=== PATIENT | female | born 1940 | race Caucasian/White ===

== ENCOUNTER 2017-08-15 14:33 | Outpatient (CLI) | payer MEDICARE ==
--- NOTE | 2017-08-15 16:51 | ULT ---
DOPPLER VENOUS ULTRASOUND OF BOTH LOWER EXTREMITIES: INDICATION: Bilateral lower extremity edema. TECHNIQUE: Jackson scale, color Doppler, and vascular duplex with spectral analysis was performed of the deep venou s structures of both lower extremities. The common femoral vein, superficial femoral vein, popliteal vein, posterior tibial vein, proximal greater saphenous, and proximal profunda veins were assessed bi laterally. FINDINGS: There is normal compression, flow, and augmentation seen within the deep venous structures of both lo wer extremities. IMPRESSION: No evidence of deep vein thrombosis within both lower extremities. POS: [facility]
== END 2017-08-15 14:34 | disposition home or self-care (01) ==
LOC: ULT 14:33
PROVIDERS: ATTEND Family Medicine
DX: R60.1 Generalized edema (principal)
CPT/HCPCS: 93970

== ENCOUNTER 2017-08-20 20:00 | Observation (INO) | payer MEDICARE ==
[2017-08-20] MEDS ORDERED: Diazepam 10 MG/2 ML SYRINGE ONE (20:19)
[2017-08-20] MEDS ORDERED: Ondansetron HCl/PF 4 MG/2 ML Vial ONE ×2 (20:19→23:50)
[2017-08-20] MEDS ORDERED: Meclizine HCl 25 MG TAB ONE (21:03)
[2017-08-20 21:08] LABS: #Basophils 0.1 thou/uL (0.0-0.2); #Eosinphils 0.2 thou/uL (0.0-0.7); #Monocytes 0.6 thou/uL (0.11-0.59); #Neutrophils 4.4 thou/uL (1.40-6.50); %Basophils 1.6 % (0.0-1.0); %Eosinophils 2.5 % (0.0-10.0); %Lymphocytes 15.9 % (21.0-51.0); %Monocytes 9.4 % (0.0-10.0); %Neutrophils 70.7 % (42.0-75.0); Hemoglobin 13.9 g/dL (12.0-16.0); Mean Corpuscular HGB CONC 33.1 g/dL (32.0-36.0); Mean Corpuscular Hemoglobin 30.5 pg (27.0-31.0); Mean Corpuscular Volume 91.9 fl (81.0-99.0); Mean Platelet Volume 5.9 fL (7.4-10.4); Platelet Count 213 thou/uL (130-400); RBC Distribution Width 10.8 % (11.5-14.5); Red Blood Cell (RBC) Count 4.56 mill/uL (4.20-5.40); White Blood Cell (WBC) Count 6.3 thou/uL (4.8-10.8)
[2017-08-20 21:21] LABS: ALT (SGPT) 31 U/L (8-55); AST (SGOT) 32 U/L (5-34); Albumin 4.4 g/dL (3.4-4.8); Alkaline Phosphatase 49 U/L (40-150); Anion Gap 20 mmol/L (10-20); BUN (Urea Nitrogen) 20 mg/dL (9.8-20.1); Bilirubin, Total 0.4 mg/dL (0.2-1.2); Calc. Creatinine Clearance 0 mL/min (70-130); Calcium 10.1 mg/dL (7.8-10.44); Carbon Dioxide 23 mmol/L (23-31); Chloride 99 mmol/L (98-107); Estimated GFR-MDRD 46; Globulin 2.5 g/dL (2.4-3.5); Glucose 139 mg/dL (83-110); Protein, Total 6.9 g/dL (6.0-8.3); Sodium 139 mmol/L (136-145)
[2017-08-20 21:23] LABS: CKMB 5.7 ng/mL (0-6.6); Troponin I 0.027 ng/mL (< 0.028)
--- NOTE | 2017-08-20 21:28 | CT ---
BRAIN CT WITHOUT IV CONTRAST: History: 76-year-old female with history of headache and dizziness. Comparison: 01-31-17 FINDINGS: No focal mass or midline shift. No intra or extraaxial hemorrhage. Sinuses and mastoids are clear. IMPRESSION: No acute intracranial process. No mass or bleed. Stable from prior study. POS: [facility]
[2017-08-20 22:00] LABS: Bilirubin Negative (Negative); Blood, Urine Negative (Negative); Clarity Clear (Clear); Glucose, Urine (Dipstick) Negative (Negative); Leukocyte Negative (Negative); Nitrite Negative (Negative); Protein, Urine (Dipstick) Negative (Neg-Trace); Urobilinogen 0.2 mg/dL (0.2-1.0)
[2017-08-20] MEDS ORDERED: Potassium Chloride 20 MEQ TAB ONE (22:13)
--- NOTE | 2017-08-20 23:27 | MRI ---
BRAIN MRI WITHOUT IV CONTRAST: History: 76-year-old female with nausea and vomiting and dizziness throughout the day. FINDINGS: No focal mass or midline shift. No intra or extraaxial hemorrhage. No evidence for acute infarct. Alverto y mild sinus mucosal disease. Normal expected flow voids are noted. There are a few small punctate ar eas of FLAIR hyperintensity in the white matter and subcortical regions, evidence for minimal chronic white matter ischemic change. IMPRESSION: Minimal chronic white matter ischemic change. No evidence for acute infarct or other significant acu te process. POS: [facility]
[2017-08-21] MEDS ORDERED: Hydrochlorothiazide 25 MG TAB PO PRN (00:51)
[2017-08-21 01:21] LABS: Troponin I Less than 0.010 ng/mL (< 0.028)
[2017-08-21 01:30] VITALS: BMI 26.6
[2017-08-21 05:23] LABS: Troponin I 0.013 ng/mL (< 0.028)
[2017-08-21] MEDS ORDERED: Levothyroxine Sodium 50 MCG TAB PO SCH (06:00)
[2017-08-21] MEDS ORDERED: Ferrous Sulfate 325 MG TAB PO SCH (08:00)
[2017-08-21] MEDS ORDERED: Meclizine HCl 25 MG TAB PO PRN (08:16)
[2017-08-21] MEDS ORDERED: Famotidine 20 MG TAB PO SCH (09:00)
[2017-08-21] MEDS ORDERED: Clopidogrel Bisulfate 75 MG TAB PO SCH (09:00)
[2017-08-21] MEDS ORDERED: Aspirin 81 mg Enteric Coated Tablet PO SCH (09:00)
[2017-08-21] MEDS ORDERED: Ondansetron HCl/PF 4 MG/2 ML Vial IVP PRN (10:38)
[2017-08-21] MEDS ORDERED: Ondansetron ODT 4 MG TAB PO PRN (10:38)
[2017-08-21] MEDS ORDERED: Bisacodyl 5 MG TAB PO PRN (10:38)
[2017-08-21] MEDS ORDERED: Acetaminophen 325 MG TAB PO PRN (10:38)
[2017-08-21] MEDS ORDERED: Potassium Chloride 20 MEQ TAB PO SCH (10:45)
--- NOTE | 2017-08-21 12:29 | HP ---
PRIMARY CARE PHYSICIAN: Dr. Vanessa Faustin. CHIEF COMPLAINT: Dizziness, vertigo, and weakness. HISTORY OF PRESENT ILLNESS: This is a 76-year-old white female who had a remote history of benign po sitional vertigo years ago. She, in the last year, has had exacerbation of her coronary artery disea se with stent placed in September and then a lower GI bleed back in April of this year at which po int her Plavix was discontinued. She reports that ever since her last hospitalization for the GI ble ed, she has had some frontal headache or pressure. The patient has had a diagnosis of a meningioma, but reports that she was told it was not dangerous then the only time that they would ever consider d oigregorio a surgery would be as if she started to have blindness from pressure on optic nerve. Patient [facility] about a week ago started having very short episodes of vertigo, this would last for a couple o f seconds and resolve and then 2 days ago, she had a more significant episode that lasted little bit longer, but that she was able to shake off and then yesterday at [place], she had a more prolonged episode in the morning and then significant one in the afternoon, when she stood still for a while, they eventually resolved and then in the evening yesterday, patient had sudden onset of severe vertig o unrelated to position. She has her eyes open. She constantly sees the room rotating in a clockwis e manner and feeling generalized weakness when she sits up or stands up. The patient was evaluated i n the emergency room, she was found to have rotary nystagmus that was continuous. She had a CT that was negative and an MRI of the brain that was negative as well, but she did not respond to any medica tions in the emergency room and was put in observation for neurologic consultation. The patient did report multiple episodes of vomiting prior to coming to the emergency room, these resolved with medic ations from the emergency room. She denies any focal weakness, numbness or tingling and denies havin g had her neck extended or unusual position for a prolonged period of time prior to symptoms on setti ng. These symptoms did not seem to be worse when she rotates her head or looks back over shoulder. PAST MEDICAL HISTORY: 1. Coronary artery disease with multiple stents and angina. 2. Diverticulosis with previous diverticulitis. 3. Hyperlipidemia. 4. Chronic back and neck pain. 5. Peripheral neuropathy in all extremities. 6. Asthma. 7. Hypertension. 8. Previous skin cancer, resected. PAST SURGICAL HISTORY: 1. Carpal tunnel surgery. 2. Hysterectomy. 3. Thyroidectomy. 4. Hernia repair. 5. Cervical spine surgery. 6. Multiple cardiac stents. 7. Sigmoid resection. 8. Rectovaginal fistula repair. 9. Cholecystectomy. 10. Bunionectomy. 11. Rectocele repair. SOCIAL HISTORY: The patient denies tobacco, alcohol, or illicit drug use. She lives with her ward pierce. ALLERGIES: 1. AMITRIPTYLINE. 2. CODEINE. 3. DEXAMETHASONE. 4. NITROFURANTOIN. 5. PENICILLIN. 6. SULFA. 7. ULTRAM. 8. CEFUROXIME. 9. DICYCLOMINE. 10. METOCLOPRAMIDE. 11. MORPHINE. 12. SHELLFISH. 13. SUDAFED. CURRENT MEDICATIONS: 1. Aspirin 81 mg daily. 2. Lisinopril/hydrochlorothiazide 10/12.5 mg daily. 3. Levothyroxine 50 mcg daily. 4. Citracal 1 tablet every other day. 5. Magnesium 500 mg once a day. 6. Vitamin B complex 1 tablet daily. 7. Vitamin D3 Complete 1 tablet daily. PSYCHIATRIC HISTORY: No previous psychiatric history. FAMILY HISTORY: Mother and father both lived into their late 90s. No history of early stroke or hea rt disease. REVIEW OF SYSTEMS: Constitutional: No fevers, no chills. She does have generalized weakness with s tanding. Eyes: No double vision or blurred vision. She does have the vertigo was spinning of the v isual field around whatever she is focusing on. ENT: No unusual congestion or drainage. She does h ave some chronic sinus issues that causes some postnasal drip at night. No sore throat. Cardiac: N o chest pain, no palpitations, no racing heart. Pulmonary: She coughs up a little bit of mucus each morning from her postnasal drip overnight, otherwise no coughing, wheezing or shortness of breath. Gastrointestinal: Nausea and vomiting per HPI, that is now resolved. No abdominal pain, no diarrhea or constipation. Genitourinary: No dysuria or hematuria. Musculoskeletal: No significant muscle aches or joint pain s currently. Skin: No rashes or lesions. Neurologic: The patient gets numbness and tingling in he r toes and fingers bilaterally that goes up her extremities. This is chronic. No new changes to thi s. See HPI for vertigo symptoms. No visual field defects, that she has noticed no focal weakness. PHYSICAL EXAMINATION: VITAL SIGNS: Temperature 98.0, pulse 77, respirations 16, blood pressure 112/57 and O2 sat 94% on ro om air. GENERAL: This is a well-developed elderly white female who appears in some distress whenever she crescencio ps her eyes open, so she has to keep them closed. HEENT: Pupils equal, round, and reactive to light. She has constant counterclockwise rotational nys tagmus not related to her position or is also to see her eyes during this while she has her eyes clos ed just bothers her when they are open. Oropharynx clear without lesions, erythema or exudate. NECK: Supple, no lymphadenopathy, no thyroid nodules or enlargement, no JVD. HEART: Regular rate and rhythm, no murmurs, rubs or gallops. LUNGS: Clear to auscultation bilaterally, no wheezes, crackles or rhonchi. ABDOMEN: Soft, nontender to palpation, normoactive bowel sounds, no hepatosplenomegaly or other mass es. EXTREMITIES: No clubbing, cyanosis or edema. SKIN: No rashes or lesions. NEUROLOGIC: She has intact deep tendon reflexes in all extremities. Strength is 5/5 in all extremit ies. No facial droop. Other than the nystagmus, she does have intact extraocular movement. The pat ient did have a negative Chelo-Hallpike maneuver on both sides. Her nystagmus and vertigo are signific antly worse when she sits or stands up, little bit better when she lays down and keeps her eyes close d. PSYCHIATRIC: Alert, oriented x3, normal mood and affect, normal insight and judgment. LABORATORY DATA: CBC within normal limits. Complete metabolic panel with a potassium of 3.0, creati nine of 1.14, glucose of 139 and the rest is completely normal. Cardiac marker set negative x3. Uri nalysis is negative for infection. I did review the EKG done in the emergency room along with teleme try monitoring strip, the patient has normal sinus rhythm, no evidence of acute ST elevation MS or ar rhythmia and telemetry was normal overnight. CT of the brain done in the emergency room shows no acu te process. MRI of the brain shows no mass or evidence of stroke, no acute process visualized. ASSESSMENT: 1. Acute onset persistent vertigo with rotational nystagmus. The patient is not responding to mecli zine or other medications in the emergency room. We will continue to give her Zofran as needed for n ausea and vomiting. She is taking good p.o. fluids now. We will consult Dr. Salas, Neurology for further evaluation. 2. Coronary artery disease with previous stents, no evidence of acute cardiac process, no angina cur rently. We will continue home medications. 3. Hypertension. We will resume patient's home medications. 4. Hyperlipidemia. Resume home medications. 5. Diverticulosis with history of previous gastrointestinal bleed. We will continue patient's aspir in for now. We will hold on other anticoagulants, was recommended by Neurology. 6. Gastrointestinal prophylaxis. Put the patient on her Pepcid daily. 7. Deep venous thrombosis prophylaxis. Put the patient on sequential compression devices and TEDs w hile in bed. We will hold on Lovenox for now and recent gastrointestinal bleed. 8. CODE STATUS. I did discuss with the patient. She is a FULL CODE. Should she be incapacitated h er , Anai Guillermo, will be her medical power of swatcher.
--- NOTE | 2017-08-21 12:33 | DIS ---
PRIMARY CARE PHYSICIAN: Dr. Faustin. DIAGNOSIS ON ADMISSION: Acute onset vertigo. DISCHARGE DIAGNOSIS: Peripheral vertigo without evidence for stroke. PROCEDURES: 1. CT of the brain negative for acute changes. 2. MRI of the brain negative for acute changes. CONSULTATIONS: Neurology, Dr. Salas. SUMMARY OF HOSPITAL COURSE: This is a 76-year-old white female who came in with acute onset of vertigo, which she had a counterclockwise nystagmus noticed in the emergency room. CT and MRI were negative. She was put in the hospital for persistent symptoms even after treatment in the emergency room. Dr. Salas was consulted. He saw the patient and determined this was not central, it was actually peripheral in origin, and gave her a dose of steroids in the hospital and then recommended 3 more days of prednisone after that. The patient does have some previous adverse effects to dexamethasone and some other steroids, but has had prednisone recently without problems. Before discharge physical therapy tried to get the patient up to bedside commode and she wasn't able to stand even with assistance. As a result rehab was consulted and patient was accepted to [facility]. However, by that time patient was feeling a little better, was able to get up with family if went very slowly so chose to go home. Rehab will call in next 1-2 days to make sure they are doing well at home. DISCHARGE MANAGEMENT: Discharged home. Follow up with Dr. Faustin next week and with Dr. Salas next week as well. ACTIVITIES: As tolerated. DIET: Healthy heart, low sodium diet. MEDICATIONS: Resume all home medications plus prednisone 40 mg daily for 3 more days. MTDD
[2017-08-21] MEDS ORDERED: predniSONE 20 MG TAB PO SCH (13:00)
--- NOTE | 2017-08-21 15:24 | PDOC.EVN ---
Event Note - Event Note Event Note: PT evaluated patient this AM. Unable to walk even with assist due to vertigo. BP and pulse without evidence of orthostasis. Rehab evaluation done [facility]. MOT signed.
[2017-08-21 16:43] VITALS: TEMP 97.6
[2017-08-21 18:38] VITALS: BP 136/65
[2017-08-21] MEDS ORDERED: Docusate 100 MG CAP PO SCH (21:00)
[2017-08-22] MEDS ORDERED: Non-Formulary Item 1 EACH (Lisinopril/Hydrochlorothiazide [Lisinopril-Hctz 10-12.5 Mg Tab PO SCH (09:00)
== END 2017-08-21 18:46 | disposition home or self-care (01) ==
LOC: SCSER 20:00 → 2NO 22:04
PROVIDERS: ADMIT Internal Medicine; ATTEND Internal Medicine
DX: H81.399 Other peripheral vertigo, unspecified ear (principal); I25.10 Atherosclerotic heart disease of native coronary artery without angina pectoris; D32.9 Benign neoplasm of meninges, unspecified; I25.119 Atherosclerotic heart disease of native coronary artery with unspecified angina pectoris; I10 Essential (primary) hypertension; E78.5 Hyperlipidemia, unspecified; M54.2 Cervicalgia; M54.9 Dorsalgia, unspecified; G89.29 Other chronic pain; G62.9 Polyneuropathy, unspecified; J45.909 Unspecified asthma, uncomplicated; E89.0 Postprocedural hypothyroidism; H55.09 Other forms of nystagmus; K57.90 Diverticulosis of intestine, part unspecified, without perforation or abscess without bleeding; Z79.82 Long term (current) use of aspirin; Z79.52 Long term (current) use of systemic steroids; Z79.899 Other long term (current) drug therapy; Z88.2 Allergy status to sulfonamides; Z88.8 Allergy status to other drugs, medicaments and biological substances; Z88.1 Allergy status to other antibiotic agents; Z88.5 Allergy status to narcotic agent; Z88.0 Allergy status to penicillin; Z91.013 Allergy to seafood; Z95.818 Presence of other cardiac implants and grafts; Z90.49 Acquired absence of other specified parts of digestive tract; Z90.710 Acquired absence of both cervix and uterus; Z98.890 Other specified postprocedural states; Z85.828 Personal history of other malignant neoplasm of skin
CPT/HCPCS: 51701; 70450; 70551; 80053; 81003; 82553; 84484 ×3; 85025; 93005; 96361; 96374; 96375; 96376; 97139 ×2; 99285; G0378; G8978; G8979; G8987; G8988; 36415; A4353; J2405; J3360; J7506

== ENCOUNTER 2017-10-30 08:18 | Outpatient (CLI) | payer MEDICARE ==
--- NOTE | 2017-10-30 09:13 | MRI ---
MR ANGIOGRAM OF [place] OF [place]: Date: 10/30/17 HISTORY: Dizziness and giddiness. COMPARISON: None. TECHNIQUE: MR angiogram of [place] is performed in the axial plane utilizing 3D mymg-pe-tsyeql imaging. Maximum intensity projection images are submitted for interpretation. FINDINGS: There is symmetric flow-related signal in the distal cervical and intracranial internal carotid arter ies. Anterior Circulation: Symmetric flow-related signal of the A1 and M1 segments. Symmetric flow-relate d signal in the proximal A2 segments and proximal MCA branches. Posterior Circulation: Left vertebral artery is dominant. Left and right PICA artery origins are estelita ssly unremarkable. Both vertebral arteries supply a normal caliber basilar artery. Appropriate flow-r elated signal. No significant stenosis. There is symmetric flow-related signal in the P1 segment. No significant stenosis. IMPRESSION: Unremarkable MR angiogram of [place]. POS: [facility]
--- NOTE | 2017-10-30 09:20 | MRI ---
MR VENOGRAM: Date: 10/30/17 HISTORY: Unsteadiness on the feet. Unsteady gait. COMPARISON: None. TECHNIQUE: MR venogram is performed utilizing coronal 2D [id number]-[id number] imaging. FINDINGS: There is appropriate flow-related signal in the sagittal sinus, straight sinus, left transverse sinus , and bilateral sigmoid sinuses. 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 IMPRESSION: Unremarkable MR venogram. POS: [facility]
== END 2017-10-30 08:19 | disposition home or self-care (01) ==
LOC: TBSIIMAG 08:18
PROVIDERS: ATTEND Neurological Surgery
DX: R42 Dizziness and giddiness (principal); R26.81 Unsteadiness on feet
CPT/HCPCS: 70544

== ENCOUNTER 2017-11-28 13:23 | Outpatient (CLI) | payer MEDICARE | END 2017-11-28 13:24 | disposition home or self-care (01) | LOC: ULT 13:23 | PROVIDERS: ATTEND Family Medicine | DX: I10 Essential (primary) hypertension (principal); I08.1 Rheumatic disorders of both mitral and tricuspid valves | CPT/HCPCS: 93306 ==

== ENCOUNTER → 2017-12-10 | Day surgery (SDC) | payer MEDICARE ==
[2017-12-07 14:57] VITALS: BMI 26.4
[~2017-12-10] MED LIST: Benzonatate 100 MG CAP PO ONE; Gadobenate Dimeglumine 529 MG/1 ML (20ML VIAL) ONE
--- NOTE | 2017-12-10 11:14 | MRI ---
MRI BRAIN WITH AND WITHOUT CONTRAST: DATE: 12/10/17. HISTORY: A 77-year-old female with R27.0, ataxia; R42, dizziness; R26.89, balance problem; R25.0, head movemen ts abnormal; R 51, headache; Z86.018, history of meningioma. TECHNIQUE: Multiple sequences obtained in axial, sagittal, and coronal planes; pre and post IV injection of gado linium-based contrast agent: 14 mL of MultiHance. FINDINGS: The ventricles are normal in size and configuration. There is no restricted diffusion, abnormal intr aaxial enhancement, mass, midline shift or any other mass effect, recent intraaxial hemorrhage, or ex traaxial fluid collection. There are a few scattered punctate T2-hyperintensities in the cerebral whi te matter consistent with mild chronic ischemic white matter changes due to mild microvascular athero sclerosis. There is a tiny old lacunar infarction in the superior aspect of the right cerebellar hem isphere (image 7 of 27, series 7). There is a small, T2 hypointense enhancing extraaxial mass at the tuberculum sellae, measuring approximately 0.8 x 0.7 x 0.7 cm, with a component that protrudes infer iorly into the sella turcica. There has been no interval change since 02/01/17 and 08/20/17. IMPRESSION: 1. Mild chronic ischemic white matter changes. 2. Small meningioma of tuberculum sellae. 3. Tiny old lacunar infarction in the right superior cerebellar artery territory. 4. No interval change since 02/01/17. jnR POS: [facility]
[2017-12-10 11:43] VITALS: BP 160/68; TEMP 97.6
[2017-12-10 12:49] LABS: Color Of CSF Supernatant COLORLESS (Colorless); Tube # 2; Unspun CSF Color COLORLESS (Colorless)
[2017-12-10 13:03] LABS: CSF Source CSF; Clarity Clear (Clear); RBC Count - Manual 0 /cumm (None Seen); Tube # 4; WBC/NonHematics Count - Manual 0 /cumm (0-5)
[2017-12-10 13:07] LABS: CSF, Glucose 62 mg/dl (40-70); CSF, Protein 49 mg/dL (15-40)
--- NOTE | 2017-12-10 13:13 | RAD ---
LUMBAR PUNCTURE: HISTORY: Ataxia. Weakness. FINDINGS: After informed consent was obtained, the patient was prepped and draped in normal sterile fashion. L ocal anesthesia obtained with 1% Xylocaine. An L5-S1 puncture was performed using a 22 gauge spinal needle. Opening pressure of 3 was obtained. A total of approximately 13 cc of clear CSF were obtain ed in 4 separate tubes. The patient tolerated the procedure well. There are no immediate complicati ons. IMPRESSION: Successful fluoroscopically directed lumbar puncture. POS: [facility]
[2017-12-10 16:08] LABS: Ref Lab Test Ordered PARANEOPLASTIC CSF
[2017-12-10 16:09] LABS: Ref Lab Test Ordered ACE CSF
--- NOTE | 2017-12-10 16:17 | MRI ---
MRI CERVICAL SPINE WITH AND WITHOUT CONTRAST: Date: 12/10/17 HISTORY: 77-year-old female with: R27.0, ataxia R26.89, balance problems Cervicalgia and cervical radiculopathy. TECHNIQUE: Multisequence MRI of cervical spine in sagittal and axial planes, pre and post IV injection of 14 mL MultiHance Gadolinium based contrast agent. FINDINGS: Cervical spinal cord is normal in size and signal, with no evidence of syrinx. Anterior metallic plat e and screws at C5 and C6, causing local magnetic susceptibility artifact. Superior to C5, and inferi or to C6, the bone marrow signal is normal. No abnormal, unexpected enhancement is noted at any level . C1-2: Degenerative pseudopannus around the odontoid process. No high grade central stenosis, and no high gr ryan degenerative changes at the atlantoaxial or atlanto-occipital joints. C2-3: Moderate to severe disc space narrowing. No central stenosis. No right neural foraminal stenosis. Min imal left neural foraminal stenosis. Normal right facet joint. Ankylosis of left facet joint. C3-4: Moderate to severe disc space narrowing. Probable ankylosis across the right lateral posterior corner of the disc space. Small central disc-osteophyte complex encroaches upon the anterior aspect of the spinal canal. No high grade central stenosis. Small bilateral uncinate process osteophytes. Mild to m oderate right neural foraminal stenosis. Moderate left neural foraminal stenosis. Moderate right dege nerative facet hypertrophy, with questionable ankylosis. Moderate left degenerative facet changes. C4-5: No significant central spinal canal stenosis despite shallow, broad based disc-osteophytic bar comple x encroaching upon the anterior aspect of the spinal canal. No significant right neural foraminal angela nosis. Moderate left neural foraminal stenosis. Normal right facet joint. Ankylosis of the left facet joint. C5-6: Broad based disc-osteophytic bar complex encroaches upon the anterior aspect of the spinal canal. Thi ckened ligamentum flavum encroaches upon the posterior aspect of the spinal canal. Overall moderate c entral spinal canal stenosis. Bilateral moderate sized uncinate process osteophytes. Normal right fac et joint. Mild left degenerative facet changes. Moderate to severe right neural foraminal stenosis. M oderate left neural foraminal stenosis. Moderate central spinal canal stenosis. C6-7: Mild to moderate right degenerative facet changes. Moderate left degenerative facet changes. Mild to moderate right neural foraminal stenosis. Moderate left neural foraminal stenosis. Thickened ligament um flavum encroaches upon the anterior aspect of the spinal canal. Mild to moderate central spinal ca nal stenosis. C7-T1: Moderate right degenerative facet changes. Severe left degenerative facet changes. This results in mi ld Grade I anterolisthesis of C7 on T1. Mild right neural foraminal stenosis. Moderate to severe left neural foraminal stenosis. No significant central stenosis. IMPRESSION: 1. Status post anterior cervical diskectomy and fusion at C5-6. 2. Ankylosis of left C2-3 and C4-5 facet joints. 3. Multilevel facet osteoarthrosis bilaterally. 4. Moderate central spinal canal stenosis at C5-6 and C6-7. 5. Neural foraminal stenosis of varying degrees. POS: [facility]
[2017-12-12 13:26] LABS: VDRL, CSF Non Reactive (Non Rea:<1:1)
[2017-12-12 14:26] LABS: West Nile Virus IgG Ab Negative (Negative); West Nile Virus IgM Ab Negative (Negative)
[2017-12-12 23:11] LABS: HSV-1 IgG Type Specific >62.20 index (0.00-0.90); HSV-2 IgG Type Specific Less than 0.91 index (0.00-0.90)
[2017-12-18 15:32] LABS: CSF IgG Index 0.5 (0.0-0.7); CSF IgG Synthesis Rate -0.7 mg/day (-9.9 TO +3.3); IgG/Alb CSF 0.08 (0.00-0.25)
== END ==
LOC: RAD 07:46
PROVIDERS: ATTEND Student in an Organized Health Care Education/Training Program
PROC: 009U3ZZ Drainage of Spinal Canal, Percutaneous Approach (ICD-10-PCS; principal; 2017-12-10)
DX: R27.0 Ataxia, unspecified (principal); R51 Headache; R53.1 Weakness; Z88.5 Allergy status to narcotic agent; Z88.8 Allergy status to other drugs, medicaments and biological substances; Z86.018 Personal history of other benign neoplasm
CPT/HCPCS: 36415; 62270; 70553; 72156; 82040; 82042; 82565; 82784; 82945; 83916; 84157; 86592; 86694; 86695; 86696; 86788; 86789; 87070; 87205; 88184; 89051; A9579

== ENCOUNTER 2019-08-02 00:25 | Emergency (ER) | payer MEDICARE ==
[2019-08-02 01:24] LABS: #Basophils 0.1 thou/uL (0.0-0.2); #Eosinphils 0.2 thou/uL (0.0-0.7); #Lymphocytes 1.2 thou/uL (1.20-3.40); #Monocytes 0.6 thou/uL (0.11-0.59); #Neutrophils 5.7 thou/uL (1.40-6.50); %Basophils 0.7 % (0.0-1.0); %Eosinophils 2.7 % (0.0-10.0); %Lymphocytes 15.9 % (21.0-51.0); %Monocytes 7.1 % (0.0-10.0); %Neutrophils 73.6 % (42.0-75.0); Hemoglobin 13.4 g/dL (12.0-16.0); Mean Corpuscular Hemoglobin 33.6 pg (27.0-31.0); Mean Corpuscular Volume 96.1 fL (78.0-98.0); Mean Platelet Volume 6.1 fL (7.4-10.4); Platelet Count 234 thou/uL (130-400); RBC Distribution Width 11.6 % (11.5-14.5); White Blood Cell (WBC) Count 7.7 thou/uL (4.8-10.8)
[2019-08-02 01:53] LABS: ALT (SGPT) 30 U/L (8-55); AST (SGOT) 27 U/L (5-34); Albumin 4.1 g/dL (3.4-4.8); Alkaline Phosphatase 51 U/L (40-110); Anion Gap 15 mmol/L (10-20); BUN (Urea Nitrogen) 18 mg/dL (9.8-20.1); Bilirubin, Total 0.5 mg/dL (0.2-1.2); Calc. Creatinine Clearance 0 mL/min (70-130); Calcium 9.4 mg/dL (7.8-10.44); Carbon Dioxide 27 mmol/L (23-31); Chloride 99 mmol/L (98-107); Estimated GFR-MDRD 38; Globulin 2.6 g/dL (2.4-3.5); Glucose 106 mg/dL (83-110); Potassium 3.9 mmol/L (3.5-5.1); Protein, Total 6.7 g/dL (6.0-8.3); Sodium 137 mmol/L (136-145)
== END 2019-08-02 03:25 | disposition home or self-care (01) ==
LOC: ERS 00:25
DX: R55 Syncope and collapse (principal); E78.5 Hyperlipidemia, unspecified; E78.00 Pure hypercholesterolemia, unspecified; J45.909 Unspecified asthma, uncomplicated; I20.9 Angina pectoris, unspecified; I10 Essential (primary) hypertension; Z79.82 Long term (current) use of aspirin; Z79.899 Other long term (current) drug therapy
CPT/HCPCS: 36415; 80053; 84443; 84484; 85025; 93005; 96360; 96361

== ENCOUNTER 2020-02-13 10:40 | Outpatient (CLI) | payer MEDICARE ==
--- NOTE | 2020-02-13 16:35 | NM ---
NUCLEAR MEDICINE BRAIN IMAGIN02/13/20 HISTORY: Unspecified abnormalities of gait and mobility. TECHNIQUE: A DaTscan with axial tomographic images of the brain was obtained three hours following the intraveno us administration of 4.3 millicuries Iodine 123 Ioflupane. The patient was pretreated with 130 mg of potassium iodine orally one hour prior to the injection. FINDINGS: There is normal symmetric uptake in the striata bilaterally, demonstrating symmetric, crescent shaped focal areas of activity mirrored about the median plane. IMPRESSION: Normal exam. POS: [facility]
== END 2020-02-13 10:41 | disposition home or self-care (01) ==
LOC: NM 10:40
PROVIDERS: ATTEND Psychiatry & Neurology Neurology
DX: R26.9 Unspecified abnormalities of gait and mobility (principal); R42 Dizziness and giddiness
CPT/HCPCS: 78803; A9584